=== PATIENT | female | born 1990 | race Two or more races ===

== ENCOUNTER 2016-07-24 21:33 | Emergency (ER) | payer OTHER ==
[~2016-07-24] VITALS: Ht 157.5 cm; Wt 79.4 kg
[~2016-07-24 21:33] MED LIST: NO MEDS
[2016-07-24 22:40] LABS: BASOPHILS # (AUTO) 0.1 /CMM (0.0-0.2); BASOPHILS % (AUTO) 0.5 % (0.0-2.0); EOSINOPHILS # (AUTO) 0.6 /CMM (0.0-0.7); EOSINOPHILS % (AUTO) 5.2 % (0.0-6.0); HEMATOCRIT 38 % (33-45); LYMPHOCYTES % (AUTO) 17.2 % (20.0-44.0); MEAN CORPUSCULAR HEMOGLOBIN 31 PG (26.0-33.0); MEAN CORPUSCULAR HGB CONC 34 g/dl (31.0-36.0); MEAN CORPUSCULAR VOLUME 89 fL (82-100); MONOCYTES # (AUTO) 0.8 /CMM (0.1-1.30); MONOCYTES % (AUTO) 6.6 % (2.0-12.0); NEUTROPHILS # (AUTO) 8.4 /CMM (1.8-8.9); NEUTROPHILS % (AUTO) 70.5 % (43.0-81.0); PLATELET COUNT (AUTO) 246 /CMM (150-450); RDW COEFFICIENT OF VARIATION 13.1 (11.5-15.0); RED BLOOD CELL COUNT(AUTO) 4.24 MIL/uL (4.0-5.2); WHITE BLOOD COUNT (AUTO) 11.9 K/uL (4.3-11.0)
[2016-07-24 22:48] LABS: APPEARANCE,URINE CLEAR (CLEAR); BILIRUBIN,URINE NEGATIVE (NEGATIVE); BLOOD, URINE 3+ Ery/uL (NEGATIVE); COLOR,URINE YELLOW (YELLOW); KETONES,URINE NEGATIVE (NEGATIVE); LEUKOCYTE ESTERASE ,URINE NEGATIVE (NEGATIVE); NITRITE, URINE NEGATIVE (NEGATIVE); PROTEIN,URINE TRACE mg/dl (NEGATIVE); UGLUCOSE NEGATIVE (NEGATIVE)
[2016-07-24 22:54] LABS: CALCIUM, SERUM 8.9 mg/dL (8.5-10.1); CREATININE 0.6 mg/dL (0.6-1.3); POTASSIUM 3.3 mmol/L (3.5-5.1)
[2016-07-24 22:59] LABS: BACTERIA,URINE None seen /HPF (None Seen); MUCUS,URINE Moderate /LPF (None Seen); RBC,URINE 0-2 /HPF (0-2); SQUAMOUS EPITHELIAL CELL,UR Few /HPF (None Seen); WBC,URINE 0-2 /HPF (0-3)
--- NOTE | 2016-07-24 23:00 | NUR ---
US TECH IS AT THE BEDSIDE.
[2016-07-24 23:03] LABS: INR 0.89 (0.87-1.13); PROTHROMBIN TIME 9.5 SECS (9.5-12.7)
--- NOTE | 2016-07-24 23:20 | NUR ---
LAB CALLED. PT IS NOT A CANDIDATE FOR [facility].
[2016-07-24] MEDS ORDERED: POTASSIUM CHLORIDE 20 MEQ TAB.PRT.SR PO ONE ×2 (23:26→23:30)
--- NOTE | 2016-07-24 23:41 | NUR ---
US IS FINISHED AT THE BEDSIDE.
--- NOTE | 2016-07-25 00:17 | NUR ---
Patient discharged to home in stable condition. Written and verbal after care instructions given. Patient verbalizes understanding of instruction. PT REC'D A COPY OF THE IMAGING
--- NOTE | 2016-07-25 00:19 | NUR ---
PT AMBULATED OUT WITH A STEADY GAIT. VSS.
[2016-07-25 00:20] VITALS: BP 128/78
== END 2016-07-25 00:21 | disposition home or self-care (01) ==
LOC: ER 21:33
DX: O20.8 Other hemorrhage in early pregnancy (principal); Z98.890 Other specified postprocedural states; Z3A.08 8 weeks gestation of pregnancy
CPT/HCPCS: 36415; 76856; 80048; 81001; 84702; 85025; 85730; 99285; A4606; Z7610; 81000-TC

== ENCOUNTER 2019-01-20 14:54 | Emergency (ER) | payer MEDICAID, OTHER ==
[~2019-01-20] VITALS: Ht 157.5 cm; Wt 72.6 kg
[2019-01-20] MEDS ORDERED: ONDANSETRON HCL/PF 4 MG/2 ML VIAL ONE (15:22)
[2019-01-20 15:25] LABS: BASOPHILS # (AUTO) 0.1 /CMM (0.0-0.2); BASOPHILS % (AUTO) 0.8 % (0.0-2.0); EOSINOPHILS % (AUTO) 3.8 % (0.0-6.0); HEMATOCRIT 40 % (33-45); HEMOGLOBIN 12.8 g/dL (11.5-14.8); LYMPHOCYTES # (AUTO) 1.5 /CMM (0.8-4.8); LYMPHOCYTES % (AUTO) 12.8 % (20.0-44.0); MEAN CORPUSCULAR HGB CONC 32 g/dl (31.0-36.0); MEAN CORPUSCULAR VOLUME 86 fL (82-100); MONOCYTES # (AUTO) 0.5 /CMM (0.1-1.30); MONOCYTES % (AUTO) 4.3 % (2.0-12.0); NEUTROPHILS # (AUTO) 9.1 /CMM (1.8-8.9); NEUTROPHILS % (AUTO) 78.3 % (43.0-81.0); PLATELET COUNT (AUTO) 258 /CMM (150-450); RED BLOOD CELL COUNT(AUTO) 4.61 MIL/uL (4.0-5.2); WHITE BLOOD COUNT (AUTO) 11.6 K/uL (4.3-11.0)
[2019-01-20 15:26] LABS: APPEARANCE,URINE Clear (CLEAR); BILIRUBIN,URINE Negative (NEGATIVE); BLOOD, URINE Negative Ery/uL (NEGATIVE); COLOR,URINE Yellow (YELLOW); KETONES,URINE Negative (NEGATIVE); LEUKOCYTE ESTERASE ,URINE Negative (NEGATIVE); NITRITE, URINE Negative (NEGATIVE); PROTEIN,URINE Negative (NEGATIVE); UGLUCOSE Negative (NEGATIVE); UROBILINOGEN,URINE 0.2 EU/dL (0.2)
[2019-01-20] MEDS ORDERED: ONDANSETRON HCL/PF 4 MG/2 ML VIAL IVP ONE (15:30)
[2019-01-20] MEDS ORDERED: IV NS 0.9% 1,000 ML BAG IV ONE (15:30)
--- NOTE | 2019-01-20 15:30 | NUR ---
PATIENT CAME IN TO THE ER C/O DIZZINESS,N/V/D X 1 HOUR WHILE EATING LUNCH TODAY. ON ROOM AIR, BREATHING EVENLY AND UNLABORED. CONNECTED TO THE MONITOR AND PULSE OX. KEPT COMFORTABLE, WILL CONTINUE TO MONITOR ACCORDINGLY.
[2019-01-20 15:50] LABS: CALCIUM, SERUM 9.1 mg/dL (8.5-10.1); CREATININE 0.7 mg/dL (0.6-1.3)
[2019-01-20 15:56] LABS: BILIRUBIN,DIRECT 0.1 mg/dL (0.0-0.2); BILIRUBIN,TOTAL 0.3 mg/dL (0.2-1.0); TOTAL PROTEIN, SERUM 8.1 g/dL (6.4-8.2)
[2019-01-20 16:09] VITALS: BP 125/81
--- NOTE | 2019-01-20 16:09 | NUR ---
Patient discharged to home in stable condition. Written and verbal after care instructions given. Patient verbalizes understanding of instruction.IV removed. Catheter intact and site benign. Pressure and 4x4 applied to site. No bleeding noted.
== END 2019-01-20 16:09 | disposition home or self-care (01) ==
LOC: ER 14:54
DX: R42 Dizziness and giddiness (principal); R11.2 Nausea with vomiting, unspecified; G51.0 Bell's palsy; Z98.890 Other specified postprocedural states
CPT/HCPCS: 36415; 80048; 80076; 81001; 84703; 85025; 96361; 96374; 99283; J2405; J7030; 81000-TC

== ENCOUNTER 2021-04-20 18:53 | Emergency (ER) | payer MEDICAID ==
[~2021-04-20] VITALS: Ht 157.5 cm; Wt 81.6 kg
[2021-04-20 19:16] VITALS: BP 129/81
[2021-04-20] MEDS ORDERED: IPRATROPIUM NEB FS 0.5 MG/2.5 ML AMPUL.NEB ONE (19:44)
[2021-04-20] MEDS ORDERED: ALBUTEROL FS 2.5 MG/3 ML VIAL.NEB ONE (19:44)
[2021-04-20] MEDS ORDERED: predniSONE 20 MG TABLET PO ONE (20:00)
[2021-04-20] MEDS ORDERED: IPRATROPIUM NEB FS 0.5 MG/2.5 ML AMPUL.NEB NEB ONE (20:00)
[2021-04-20] MEDS ORDERED: ALBUTEROL FS 2.5 MG/3 ML VIAL.NEB NEB ONE (20:00)
[2021-04-20] MEDS ORDERED: predniSONE 20 MG TABLET ONE (20:31)
--- NOTE | 2021-04-20 21:36 | NUR ---
COVID SWAB DONE AND SENT TO LAB
[2021-04-20] MEDS ORDERED: ALBU18HF2 INH (21:44)
[2021-04-20] MEDS ORDERED: PRED20TA PO (21:44)
--- NOTE | 2021-04-20 21:51 | NUR ---
Patient discharged to home in stable condition. Written and verbal after care instructions given. Patient verbalizes understanding of instruction.
== END 2021-04-20 21:55 | disposition home or self-care (01) ==
LOC: ER 18:58
DX: J45.909 Unspecified asthma, uncomplicated (principal); Z20.822 Contact with and (suspected) exposure to COVID-19; Z86.16 Personal history of COVID-19
CPT/HCPCS: 94644; 99285; C9803; J7512; U0003

== ENCOUNTER 2021-10-18 12:03 | Emergency (ER) | payer MEDICAID ==
[~2021-10-18] VITALS: Ht 157.5 cm; Wt 84.8 kg
[~2021-10-18 12:03] MED LIST changes: +ALBU18HF2 INH; +PRED20TA PO
--- NOTE | 2021-10-18 12:32 | NUR ---
DR GREWAL AT THE BEDSIDE
--- NOTE | 2021-10-18 12:37 | NUR ---
X-RAY TECH AT THE BEDSIDE
--- NOTE | 2021-10-18 12:56 | NUR ---
Patient discharged to home in stable condition. Written and verbal after care instructions given. Patient verbalizes understanding of instruction.
[2021-10-18 12:57] VITALS: BP 124/70
== END 2021-10-18 12:57 | disposition home or self-care (01) ==
LOC: ER 12:04
DX: S83.91XA Sprain of unspecified site of right knee, initial encounter (principal); S33.5XXA Sprain of ligaments of lumbar spine, initial encounter; J45.909 Unspecified asthma, uncomplicated; Z98.890 Other specified postprocedural states; Z79.899 Other long term (current) drug therapy; W01.0XXA Fall on same level from slipping, tripping and stumbling without subsequent striking against object, initial encounter; Y93.89 Activity, other specified; Y92.89 Other specified places as the place of occurrence of the external cause; Y99.8 Other external cause status
CPT/HCPCS: 73564-TC

== ENCOUNTER 2022-03-01 18:11 | Emergency (ER) | payer MEDICAID ==
[~2022-03-01] VITALS: Ht 165.1 cm; Wt 68.0 kg
[2022-03-01] MEDS ORDERED: IPRATROPIUM NEB FS 0.5 MG/2.5 ML AMPUL.NEB NEB ONE (20:00)
[2022-03-01] MEDS ORDERED: predniSONE 20 MG TABLET PO ONE (20:00)
[2022-03-01] MEDS ORDERED: ALBUTEROL FS 2.5 MG/3 ML VIAL.NEB NEB ONE (20:00)
--- NOTE | 2022-03-01 20:18 | NUR ---
BUS GIRL AT PT'S BEDSIDE
[2022-03-01] MEDS ORDERED: predniSONE 20 MG TABLET ONE (20:22)
--- NOTE | 2022-03-01 20:25 | NUR ---
COVID ANTIGEN AND INFLUENZA SWAB COLLECTED AND SENT TO LAB
--- NOTE | 2022-03-01 20:27 | NUR ---
RT CALLED FOR BREATHING TX
[2022-03-01] MEDS ORDERED: IPRATROPIUM NEB FS 0.5 MG/2.5 ML AMPUL.NEB ONE (20:36)
[2022-03-01] MEDS ORDERED: ALBUTEROL FS 2.5 MG/3 ML VIAL.NEB ONE (20:36)
--- NOTE | 2022-03-01 20:41 | NUR ---
RT AT PT'S BEDSIDE FOR BREATHING TX
[2022-03-01 21:00] VITALS: BP 121/64
[2022-03-01] MEDS ORDERED: PRED50TA PO (22:03)
[2022-03-01] MEDS ORDERED: ALBU18HF2 INH (22:03)
--- NOTE | 2022-03-01 22:10 | NUR ---
Patient discharged to home in stable condition. Written and verbal after care instructions given. Patient verbalizes understanding of instruction.
== END 2022-03-01 22:11 | disposition home or self-care (01) ==
LOC: ER 18:18
DX: J45.909 Unspecified asthma, uncomplicated (principal); Z20.822 Contact with and (suspected) exposure to COVID-19
CPT/HCPCS: 99284; 71045; 87426; 87804 ×2; 94640; J7512; C9803

== ENCOUNTER 2022-03-22 09:04 | Emergency (ER) | payer MEDICAID ==
[~2022-03-22] VITALS: Ht 157.5 cm; Wt 84.8 kg
[~2022-03-22 09:04] MED LIST changes: +PRED50TA PO
--- NOTE | 2022-03-22 09:55 | NUR ---
C/O coughing with SOB for 7 days X ASTHMA COUGHING
--- NOTE | 2022-03-22 10:15 | NUR ---
CALLED RT FOR BREATHING TX
[2022-03-22] MEDS ORDERED: predniSONE 20 MG TABLET ONE (10:28)
[2022-03-22] MEDS: predniSONE 20 MG TABLET PO ONE (10:29)
[2022-03-22] MEDS ORDERED: IPRATROPIUM NEB FS 0.5 MG/2.5 ML AMPUL.NEB ONE ×2 (10:39→12:41)
[2022-03-22] MEDS ORDERED: ALBUTEROL FS 2.5 MG/3 ML VIAL.NEB ONE ×2 (10:39→12:41)
[2022-03-22] MEDS: IPRATROPIUM NEB FS 0.5 MG/2.5 ML AMPUL.NEB NEB ONE ×2 (10:43→12:39)
[2022-03-22] MEDS: ALBUTEROL FS 2.5 MG/3 ML VIAL.NEB CONTNEB ONE ×2 (10:43→12:39)
[2022-03-22] MEDS ORDERED: ALBU8.5H8 INH (13:20)
[2022-03-22] MEDS ORDERED: PRED50TA PO (13:20)
--- NOTE | 2022-03-22 13:32 | NUR ---
Patient discharged to home in stable condition. Written and verbal after care instructions given. Patient verbalizes understanding of instruction.
[2022-03-22 13:33] VITALS: BP 131/88
== END 2022-03-22 13:34 | disposition home or self-care (01) ==
LOC: ER 09:06
DX: J45.909 Unspecified asthma, uncomplicated (principal); G51.0 Bell's palsy; Z79.899 Other long term (current) drug therapy
CPT/HCPCS: 99285; 94799; 94644; J7512

== ENCOUNTER 2022-10-24 19:49 | Emergency (ER) | payer MEDICAID ==
[~2022-10-24] VITALS: Ht 160 cm; Wt 85.7 kg
[~2022-10-24 19:49] MED LIST changes: +ALBU8.5H8 INH
[2022-10-24] MEDS ORDERED: ALBUTEROL FS 2.5 MG/3 ML VIAL.NEB NEB ONE ×2 (20:30→21:30)
[2022-10-24] MEDS ORDERED: predniSONE 20 MG TABLET PO ONE (20:30)
[2022-10-24] MEDS ORDERED: IPRATROPIUM NEB FS 0.5 MG/2.5 ML AMPUL.NEB NEB ONE ×2 (20:30→21:30)
[2022-10-24] MEDS ORDERED: predniSONE 20 MG TABLET ONE (20:38)
[2022-10-24] MEDS ORDERED: IPRATROPIUM NEB FS 0.5 MG/2.5 ML AMPUL.NEB ONE ×2 (20:45→21:07)
[2022-10-24] MEDS ORDERED: ALBUTEROL FS 2.5 MG/3 ML VIAL.NEB ONE ×2 (20:45→21:07)
[2022-10-24 20:47] VITALS: O2SAT 97
[2022-10-24 20:57] VITALS: O2SAT 100
[2022-10-24] MEDS ORDERED: ALBU8.5H8 INH (21:07)
[2022-10-24] MEDS ORDERED: PRED50TA PO (21:07)
[2022-10-24 21:37] VITALS: BP 124/82; TEMP 98.2; O2SAT 94
== END 2022-10-24 21:38 | disposition home or self-care (01) ==
LOC: ER 19:51
DX: J45.901 Unspecified asthma with (acute) exacerbation (principal); Z79.51 Long term (current) use of inhaled steroids; Z79.52 Long term (current) use of systemic steroids
CPT/HCPCS: 99283; 94640; J7512

== ENCOUNTER 2023-05-09 15:26 | Emergency (ER) | payer MEDICAID ==
[~2023-05-09] VITALS: Ht 157.5 cm; Wt 85.3 kg
[2023-05-09 15:50] VITALS: BP 123/76; TEMP 98.7; O2SAT 100
[2023-05-09] MEDS ORDERED: IBUPROFEN 600 MG TABLET ONE (16:11)
[2023-05-09] MEDS: IBUPROFEN 600 MG TABLET PO ONE (16:15)
== END 2023-05-09 16:16 | disposition home or self-care (01) ==
LOC: ER 15:26
DX: R07.0 Pain in throat (principal); J45.909 Unspecified asthma, uncomplicated; Z79.899 Other long term (current) drug therapy